=== PATIENT | female | born 2000 | race Caucasian/White ===

== ENCOUNTER 2019-07-13 17:22 | Observation (INO) | payer OTHER ==
[2019-07-13] MEDS ORDERED: DILTIAZEM 125 MG in SODIUM CHLORIDE 0.9% 100 ML IV SCH (17:45)
[2019-07-13] MEDS ORDERED: METOPROLOL TARTRATE 25 MG TAB PO STA (17:50)
--- NOTE | 2019-07-13 17:54 | ED ---
General Adult HPI - General Chief complaint: Arrhythmia/Palpitations Stated complaint: tachycardia Time Seen by Provider: 07/13/19 17:30 Source: patient, EMS, RN notes reviewed Mode of arrival: EMS - History of Present Illness Initial comments: This is a 18-year-old female presents emergency department from [facility]. Patient arrived to the hospital today with a heart rate between [id number] 200 according to the ER physician at [facility]. Patient was given multiple medications and eventually was put on a Cardizem drip at 15 mg an hour. Patient's heart rate slowed down and the patient was then transferred to our facility to cardiology. Patient states she did at all yesterday at 3:00 this afternoon when she was drinking with some friends. Patient states she just felt terrible this morning when she woke up and her heart was racing short of breath. Past when she went to the emergency department. Currently patient states she feels considerably better she does still feel her heart racing but she's not having any chest pain and no shortness of breath at this time. Patient denies any fever chills per patient denies any consistent use of Adderall or any other stimulants. Patient denies any injury or trauma. - Related Data Allergies Allergy/AdvReac Type Severity Reaction Status Date / Time No Known Allergies Allergy Verified 07/13/19 17:47 Review of Systems ROS Statement: Those systems with pertinent positive or pertinent negative responses have been documented in the HPI. ROS Other: All systems not noted in ROS Statement are negative. General Exam - General Exam Comments Initial Comments: GENERAL: Patient is well-developed and well-nourished. Patient is nontoxic and well- hydrated and is in mild distress. ENT: Neck is soft and supple. No significant lymphadenopathy is noted. Oropharynx is clear. Moist mucous membranes. Neck has full range of motion without eliciting any pain. EYES: The sclera were anicteric and conjunctiva were pink and moist. Extraocular movements were intact and pupils were equal round and reactive to light. Eyelids were unremarkable. PULMONARY: Unlabored respirations. Good breath sounds bilaterally. No audible rales rhonchi or wheezing was noted. CARDIOVASCULAR: She has a heart rate of 130 beats a minute and it is irregular ABDOMEN: Soft and nontender with normal bowel sounds. No palpable organomegaly was noted. There is no palpable pulsatile mass. SKIN: Skin is clear with no lesions or rashes and otherwise unremarkable. NEUROLOGIC: Patient is alert and oriented x3. Cranial nerves II through XII are grossly intact. Motor and sensory are also intact. Normal speech, volume and content. Symmetrical smile. MUSCULOSKELETAL: Normal extremities with adequate strength and full range of motion. No lower extremity swelling or edema. No calf tenderness. LYMPHATICS: No significant lymphadenopathy is noted PSYCHIATRIC: Normal psychiatric evaluation. Normal interpersonal interactions appears functionally intact in deals appropriately with others. No signs of depression. No signs of anxiety. Course Vital Signs 07/13/19 17:31 Temperature 97.4 F L Pulse Rate 132 H Respiratory 16 Rate Blood Pressure 125/78 O2 Sat by Pulse 100 Oximetry Medical Decision Making - Medical Decision Making EKG shows atrial fibrillation with rapid ventricular response at 131 bpm QRS 70 QT interval 322 QTC is 475. I spoke with Dr. Dillon about the case he did not want any anticoagulation on the patient. He did want Lopressor 25 mammograms twice a day as well as Cardizem at 10 mg an hour. Disposition Clinical Impression: Atrial fibrillation with RVR Disposition: ADMITTED IP TO THIS HOSP Referrals: Horacio Dodson MD [Primary Care Provider] - 1-2 days Time of Disposition: 17:54
[2019-07-13] MEDS ORDERED: SODIUM CHLORIDE 0.9% 1,000 ML IV ONE (17:55)
[2019-07-13] MEDS: DILTIAZEM 125 MG in SODIUM CHLORIDE 0.9% 100 ML IV SCH (18:26)
[2019-07-13] MEDS ORDERED: METOCLOPRAMIDE 5 MG/ML 2 ML VIAL IVP STA (19:44)
[2019-07-13] MEDS: METOPROLOL TARTRATE 25 MG TAB PO SCH (22:13)
[2019-07-13] MEDS ORDERED: NICOTINE 21MG/24HR PATCH TRANSDERM SCH (22:15)
[2019-07-14] MEDS ORDERED: ONDANSETRON 4 MG/2 ML VIAL IVP PRN (00:26)
[2019-07-14] MEDS ORDERED: ACETAMINOPHEN TAB 325 MG TAB PO PRN (00:29)
[2019-07-14] MEDS: CALCIUM CARBONATE 500 MG CHEWABLE PO SCH ×2 (01:54→06:29)
[2019-07-14 06:29] VITALS: PULSE 97
[2019-07-14] MEDS: DILTIAZEM 125 MG in SODIUM CHLORIDE 0.9% 100 ML IV SCH (06:31)
[2019-07-14] MEDS: METOPROLOL TARTRATE 25 MG TAB PO SCH (08:23)
[2019-07-14] MEDS ORDERED: MULTIVITAMINS, THERA 1 EACH TAB PO SCH (09:00)
[2019-07-14] MEDS ORDERED: NON FORMULARY DRUG (Vitamin C/Biotin [Hair, Skin And Nails] 1 TAB) PO SCH (09:00)
[2019-07-14 11:31] VITALS: BP 117/77; RESP 14; TEMP 98.4
[2019-07-14] MEDS ORDERED: NICOTINE 21MG/24HR PATCH TRANSDERM SCH (21:00)
--- NOTE | 2019-07-15 00:53 | P.HPIM ---
History of Present Illness H&P Date: 07/14/19 Chief Complaint: Heart racing This patient was not seen by me. Patient left AGAINST MEDICAL ADVICE this morning. Past Medical History Additional Past Medical History / Comment(s): Eating disorder History of Any Multi-Drug Resistant Organisms: None Reported Past Surgical History: Adenoidectomy Past Anesthesia/Blood Transfusion Reactions: No Reported Reaction Past Psychological History: Anxiety, Depression Smoking Status: Current every day smoker Past Alcohol Use History: Daily Additional Past Alcohol Use History / Comment(s): 5-6 drinks per day Past Drug Use History: Marijuana Medications and Allergies Home Medications Medication Instructions Recorded Confirmed Type Multivitamins, Thera [Multivitamin 1 tab PO DAILY 07/13/19 07/13/19 History (formulary)] Vitamin C/Biotin [Hair, Skin and 1 tab PO DAILY 07/13/19 07/13/19 History Nails] Allergies Allergy/AdvReac Type Severity Reaction Status Date / Time No Known Allergies Allergy Verified 07/13/19 17:57 Physical Exam Vitals: Vital Signs Temp Pulse Pulse Resp BP BP Pulse Ox 07/14/19 04:00 97.7 F 97 20 107/73 98 07/14/19 03:12 18 07/14/19 00:00 98.5 F 94 18 106/68 97 07/13/19 22:16 98 F 112 H 20 105/67 99 07/13/19 20:28 96 18 111/64 98 07/13/19 19:21 98 F 116 H 18 114/73 100 07/13/19 18:50 108/62 98 07/13/19 18:40 124 H 108/62 98 07/13/19 18:37 132 H 07/13/19 18:32 120 H 97 07/13/19 17:31 97.4 F L 132 H 16 125/78 100 Intake and Output 07/13/19 07/14/19 07/14/19 22:59 06:59 14:59 Intake Total 150 500 240 Balance 150 500 240 Intake: Oral 150 500 240 Other: Voiding Method Toilet # Voids 3 Weight 65.771 kg 67 kg Thrombosis Risk Factor Assmnt - Choose All That Apply Any of the Below Risk Factors Present?: No Other Risk Factors: No Other congenital or acquired thrombophilia - If yes, enter type in comment: No Thrombosis Risk Factor Assessment Level: Very Low Risk
--- NOTE | 2019-07-15 00:54 | P.DS ---
Providers Date of admission: 07/13/19 17:55 Expected date of discharge: 07/14/19 (Left AMA) Attending physician: Arthur Weller Consults: 07/13/19 17:55 Consult Physician Urgent Consulting Provider: [facility] Consult Reason/Comments: New-onset A. fib rapid ventricular response Do you want consulting provider notified?: Yes Primary care physician: Horacio Dodson [facility] Course: This patient was not seen by me. Patient left AMA. Patient Condition at Discharge: Undetermined Plan - Discharge Summary New Discharge Prescriptions: No Action Vitamin C/Biotin [Hair, Skin and Nails] 1 tab PO DAILY Multivitamins, Thera [Multivitamin (formulary)] 1 tab PO DAILY Discharge Medication List Multivitamins, Thera [Multivitamin (formulary)] 1 tab PO DAILY 07/13/19 [History] Vitamin C/Biotin [Hair, Skin and Nails] 1 tab PO DAILY 07/13/19 [History] Follow up Appointment(s)/Referral(s): Horacio Dodson MD [Primary Care Provider] - 1-2 days Discharge Disposition: Left Against Medical Advice
== END 2019-07-14 11:39 | disposition left against medical advice (07) ==
LOC: EC 17:22 → 3SCARD 17:55
PROVIDERS: ADMIT Hospitalist; ATTEND Hospitalist
DX: I48.91 Unspecified atrial fibrillation (principal); Z53.21 Procedure and treatment not carried out due to patient leaving prior to being seen by health care provider; R00.2 Palpitations; R00.0 Tachycardia, unspecified; F41.9 Anxiety disorder, unspecified; F32.9 Major depressive disorder, single episode, unspecified; F17.200 Nicotine dependence, unspecified, uncomplicated; Z86.59 Personal history of other mental and behavioral disorders
CPT/HCPCS: 96366 ×3; 96375 ×2; 96365; 99285; 93005; 84484 ×2; G0378 ×2; S4990; J2765; J2405